=== PATIENT | female | born 1955 | race Caucasian/White ===

== ENCOUNTER 2022-11-07 10:25 | Outpatient (CLI) | payer MEDICARE, BC, SELFPAY ==
[2022-11-07 13:25] LABS: C Reactive Protein* 0.6 mg/dL (0.5-1.0)
[2022-11-07 13:45] LABS: Erythrocyte SedimentationRate* 5 mm/hr (2-20)
== END 2022-11-07 10:26 | disposition home or self-care (01) ==
PROVIDERS: PCP Nurse Practitioner Family; Visit Provider Nurse Practitioner Family
DX: R07.89 Other chest pain (principal)
CPT/HCPCS: 85651; 86140

== ENCOUNTER 2023-06-19 14:11 | Outpatient (CLI) | payer MEDICARE, BC, SELFPAY ==
--- NOTE | 2023-06-19 14:00 | CRLHL7_ITS ---
For Patients: As a result of the Century Cures Act, medical imaging exams and procedure reports are released immediately into your electronic medical record. You may view this report before your referring provider. If you have questions, please contact your health care provider. INDICATION: Leg pain and swelling. TECHNIQUE: Ultrasound venous duplex lower left extremity. Compression venous exam was performed using ordonez-scale, color Doppler, and spectral Doppler analysis. COMPARISON: None. FINDINGS: Deep veins: Occlusive thrombus is present below the knee in a posterior tibial vein. Remainder of the deep veins are patent. Superficial veins: Greater saphenous vein is fully compressible. No popliteal cyst. IMPRESSION: Acute [id number] DVT in the posterior tibial vein. Dictated by Rui Cagle MD @ 06/19/2023 4:12:43 PM (Electronically Signed)
== END 2023-06-19 14:12 | disposition home or self-care (01) ==
PROVIDERS: PCP Nurse Practitioner Family; Visit Provider Nurse Practitioner Family
DX: M79.662 Pain in left lower leg (principal); I82.442 Acute embolism and thrombosis of left tibial vein; M79.89 Other specified soft tissue disorders
CPT/HCPCS: 80048; 85025; 93971

== ENCOUNTER 2023-06-25 14:52 | Emergency (ER) | payer MEDICARE, BC, SELFPAY ==
[2023-06-25 15:02] VITALS: BP 125/78; PULSE 88; RESP 20; TEMP 37; O2SAT 96; BMI 33.7
--- NOTE | 2023-06-25 15:02 | CRLHL7_ITS ---
For Patients: As a result of the Century Cures Act, medical imaging exams and procedure reports are released immediately into your electronic medical record. You may view this report before your referring provider. If you have questions, please contact your health care provider. INDICATION: Right leg pain and fullness TECHNIQUE: Ultrasound venous duplex lower right extremity. Compression venous exam was performed using ordonez-scale, color Doppler, and spectral Doppler imaging. COMPARISON: None. FINDINGS: Sonographic imaging demonstrates the right common femoral, deep femoral, superficial femoral, popliteal, posterior tibial and greater saphenous and the contralateral left common femoral veins to be fully compressible with normal color Doppler blood flow. IMPRESSION: Normal right lower extremity venous ultrasound, no sign of deep venous thrombosis. Dictated by Shahbaz Vicente MD @ 06/25/2023 3:58:46 PM (Electronically Signed)
--- NOTE | 2023-06-25 16:02 | ED.GENADULT ---
HPI - General Adult General Chief complaint: Extremity Pain/Injury, Lower Stated complaint: R leg blood clot/dvt Time Seen by Provider: 06/25/23 14:55 History of Present Illness HPI narrative: This 68-year-old female comes in from [facility] for an ultrasound of her right lower extremity. The patient is currently on Eliquis. She had a repair of her atrial septal defect with an approach to her right groin. She had a stent placed because the procedure caused a bleed in her right femoral vessel. The procedure was then approached from the left femoral vessel. She then developed a blood clot in left lower extremity subsequently. She is currently taking Eliquis. She does not report any chest pain or shortness of breath. Related Data Home Medications Medication Instructions Recorded Confirmed timolol maleate 0.25 % eye drops drp ophthalmic (eye) 11/07/22 06/19/23 acetaminophen 500 mg tablet 1,000 mg PO Q6H PRN 05/06/23 06/19/23 (Tylenol Extra Strength) aspirin 81 mg chewable tablet 81 mg PO QDAY 06/19/23 06/19/23 colchicine 0.6 mg capsule 0.6 mg PO BID 06/19/23 06/19/23 Previous Rx's Medication Instructions Recorded apixaban 5 mg (74 tabs) tablets in See Rx Instructions PO PER PKG DIR 06/19/23 a dose pack (Eliquis DVT-PE Treat 30 days #74 ea 30D Start) apixaban 5 mg tablet (Eliquis) 5 mg PO BID 30 days #60 tabs 06/19/23 Allergies Allergy/AdvReac Type Severity Reaction Status Date / Time oxycodone Allergy Unknown Hallucinati Verified 06/19/23 12:41 ng zoledronic acid Allergy Unknown Unknown Verified 06/19/23 12:41 Review of Systems Status of ROS: Reports: 10 or more systems reviewed and unremarkable except as noted in History and below Narrative: Constitutional: No fevers, no weight gain or loss. Eyes: No discharge. No vision changes. HENT: No congestion, no sore throat, no ear pain. Cardiovascular: No chest pain, no palpitations. Respiratory: No shortness of breath, no wheezes, no cough. Gastrointestinal: No abdominal pain, no vomiting, no diarrhea. Genitourinary: No dysuria, no hematuria. Musculoskeletal: Normal range of motion. Skin: No rashes, no pruritis. Neurological: No dizziness, weakness, sensory change, speech change. Endo/Heme/Allergies: No bleeding. No polydipsia. She has some bruising in her right and left groin from recent procedure. Pysch: no suicidality, no anxiety, no insomnia. All other systems reviewed and are negative. [facility] Medical History (Updated 06/25/23 @ 16:22 by Tip Menendez MD) Neoplasm of right kidney ?D49.511 - Neoplasm of unspecified behavior of right kidney (ICD-10) At risk for decreased bone density ?Z91.89 - Other specified personal risk factors, not elsewhere classified (ICD-10) Malignant neoplasm of breast (female) ?C50.919 - Malignant neoplasm of unspecified site of unspecified female breast (ICD-10) Perforated tympanic membrane ?H72.90 - Unspecified perforation of tympanic membrane, unspecified ear (ICD-10) History of adenomatous polyp of colon ?Z86.010 - Personal history of colonic polyps (ICD-10) Surgical History (Updated 07/23/22 @ 18:23 by Trina An APRN, IT TECHNICAL ARCHITECT) History of colonoscopy ?Z98.890 - Other specified postprocedural states (ICD-10) History of mastectomy ?Z90.10 - Acquired absence of unspecified breast and nipple (ICD-10) History of mastectomy ?Z90.10 - Acquired absence of unspecified breast and nipple (ICD-10) Hx laparoscopic cholecystectomy ?Z90.49 - Acquired absence of other specified parts of digestive tract (ICD-10) History of cataract extraction with lens replacement Family History (Updated 07/23/22 @ 18:21 by Trina An APRN, IT TECHNICAL ARCHITECT) Brother Pancreatic cancer Father High blood pressure Mother Stroke Uncle Colon cancer Paternal Grandmother Breast cancer Sister Diabetes High blood pressure Seizures Crohn's disease Sister Diabetes High blood pressure Seizures Social History Smoking Status: Never smoker Do you use any of these nicotine containing products: None Second hand tobacco smoke exposure: No How often do you have a drink containing alcohol: monthly or less How many standard drinks containing alcohol do you have on a typical day: 1 or 2 How often do you have six or more drinks on one occasion: Never AUDIT-C Alcohol total score: 1 Non-prescribed substance use: denies use service: No Exam Narrative: Exam Narrative: Constitutional: Well-developed, well-nourished, no acute distress. HEENT: Normocephalic, atraumatic. Neck: Normal range of motion. Nontender. Supple. Heart: Regular. No murmurs. Normal rate. Intact distal pulses. Lungs: Clear to auscultation. No chest discomfort. No wheezes, rhonchi, or rales. Abdomen: Normal bowel sounds. Nontender. No rebound tenderness. Genitalia: Deferred. Back: No midline tenderness. Normal range of motion. Extremities: Normal range of motion. No injury. Skin: Intact. No rash. Warm. No erythema or pallor. Neurologic: No altered sensation. No weakness. Alert and oriented. Psychiatric: No suicidality. No anxiety or depression. No insomnia. Nursing notes and vitals signs are reviewed. Const: Vital Signs, click to edit/add: Vital Signs - 24 hr 06/25/23 15:02 Temperature 98.6 F Pulse Rate [Pulse Oximeter] 88 Respiratory Rate 20 Blood Pressure [Le ft Upper Arm] 125/78 Pulse Oximetry 96 Oxygen Delivery Me thod Room Air Course Vital Signs Vital signs: Initial Vital Signs Temperature 98.6 F 06/25/23 15:02 Temperature Source Temporal Artery Scan 06/25/23 15:02 Pulse Rate 88 06/25/23 15:02 Pulse Rhythm Regular 06/25/23 15:02 Respiratory Rate 20 06/25/23 15:02 Blood Pressure 125/78 06/25/23 15:02 Blood Pressure Mean 93 06/25/23 15:02 Blood Pressure Position Supine 06/25/23 15:02 Pulse Oximetry 96 06/25/23 15:02 Oxygen Delivery Method Room Air 06/25/23 15:02 Vital Signs Temperature 98.6 F 06/25/23 15:02 Pulse Rate 88 06/25/23 15:02 Respiratory Rate 20 06/25/23 15:02 Blood Pressure 125/78 06/25/23 15:02 Pulse Oximetry 96 06/25/23 15:02 Oxygen Delivery Method Room Air 06/25/23 15:02 Temperature 98.6 F 06/25/23 15:02 Pulse Rate 88 06/25/23 15:02 Respiratory Rate 20 06/25/23 15:02 Blood Pressure 125/78 06/25/23 15:02 Pulse Oximetry 96 06/25/23 15:02 Oxygen Delivery Method Room Air 06/25/23 15:02 Medical Decision Making MDM Narrative Medical decision making narrative: This patient comes in with concern about a blood clot in her right groin where she had access to her femoral vessel in order to do a atrial septal defect repair. The patient is currently taking Eliquis and does not have any significant unilateral limb pain or swelling. There is evidence of a blood clot from previous study in her left calf hence she is on Eliquis. Today ultrasound of her femoral vessels and upper legs is obtained and shows no evidence of deep venous thrombosis. There is also no evidence of bleeding. This is reassuring to the patient who can continue with her current plans. Imaging Data Left Lower Ext U/S: Radiologist's impression: Normal right lower extremity venous ultrasound, no sign of deep venous thrombosis. Discharge Plan Discharge Clinical Impression: Deep vein thrombosis (DVT) of left lower extremity Patient Disposition: Home, Self-Care Condition: Stable Additional Instructions: Continue current plans. Follow up with MD or return if worsening. Prescriptions: No Action acetaminophen [Tylenol Extra Strength] 500 mg tablet 1,000 mg PO Q6H PRN aspirin 81 mg tablet,chewable 81 mg PO QDAY colchicine 0.6 mg capsule 0.6 mg PO BID Eliquis DVT-PE Treat 30D Start 5 mg (74 tabs) tablets,dose pack See Rx Instructions PO PER PKG DIR 30 Days Qty: 74 0RF Rx Instructions: PO PER PKG DIR; then see other prescription Eliquis 5 mg tablet 5 mg PO BID 30 Days Qty: 60 5RF Rx Instructions: to start after the start pack is completed timolol maleate 0.25 % drops ophthalmic (eye) Follow Up/Referrals: Trina An, INSULATION MACHINE OPERATOR, IT TECHNICAL ARCHITECT [Primary Care Provider] - Stand Alone Forms: MyHealth Info Instructions
[2023-06-25 16:45] VITALS: BP 123/76; PULSE 84; RESP 20; O2SAT 98
== END 2023-06-25 16:45 | disposition home or self-care (01) ==
LOC: ED 16:42
PROVIDERS: Emergency Provider Emergency Medicine Emergency Medical Services; PCP Nurse Practitioner Family
DX: I82.502 Chronic embolism and thrombosis of unspecified deep veins of left lower extremity (principal)
CPT/HCPCS: 93971; 99283; 99284

== ENCOUNTER 2023-11-10 15:40 | Outpatient (CLI) | payer MEDICARE, BC, SELFPAY | END 2023-11-10 15:41 | disposition home or self-care (01) | PROVIDERS: PCP Nurse Practitioner Family; Visit Provider Nurse Practitioner Family | DX: R10.13 Epigastric pain (principal) | CPT/HCPCS: 80053; 82150; 83690; 85025 ==

== ENCOUNTER 2023-11-11 10:15 | Outpatient (CLI) | payer MEDICARE, BC, SELFPAY | END 2023-11-11 10:16 | disposition home or self-care (01) | LOC: NFLDREF 11-13 06:23 | PROVIDERS: PCP Nurse Practitioner Family; Referring Provider Nurse Practitioner Family; Visit Provider Nurse Practitioner Family | DX: R10.13 Epigastric pain (principal) | CPT/HCPCS: 87338 ==

== ENCOUNTER 2024-06-24 10:45 | Outpatient (CLI) | payer MEDICARE, BC, SELFPAY ==
--- OUTSIDE RECORDS SUMMARY | 2024-06-24 10:50 | XMS_ITS | Clinical Summary ---
Author Organization [facility] Address [place], [place] [address] Care Team Providers Care Detailer Name Role Phone Clinic, No Pcp Or Primary Care Provider Unavaila ble Social History Tobacco Use Types Packs/Day Years Used Date Smoking Tobacco: Never Assessed Sex and Gender Information Value Date Recorded Sex Assigned at Not on file Gender Identity Not on file Sexual Orientation Not on file Plan of Treatment Health Maintenance Due Date Last Done Comments Tdap 1966 Depression screening for age 12+ 1967 BMI (ht and wt on same day) for age 18+ 1973 Hepatitis C screening for age 18-79 1973 Tetanus booster 1975 Colonoscopy through age 75 2000 Lipids for age 45-75 2000 Mammogram for age 45-75 2000 Zoster (shingles) series for age 50+ (1 of 2) 2005 DEXA/DXA scan for age 65+ 2020 Pneumococcal series for age 65+ (1 of 1 - PCV) 2020 COVID-19 vaccine series ( season) 2024 12/04/2020, 11/08/2020 Influenza for age 65+ 2024 Care Teams Detailer Relationship Specialty Start Date End Date Clinic, No Pcp Or . PCP - General 09/06/19
--- OUTSIDE RECORDS SUMMARY | 2024-06-24 10:51 | XMS_ITS | Clinical Summary ---
Author Organization [facility] Address [address] [place] [address] Care Team Providers Care Shingle Trimmer Name Role Phone Elsewhere, Pcp Primary Care Provider Unavailabl e Source Comments Patient records contain information from all sites at [facility]. For routine questions regarding patient records, call [phone] during business hours, M-F 8:00 AM - 5:00 PM Central Time. Record requests for emergency care only can be directed to [phone] at any time.[facility] Allergies Active Allergy Reactions Criticality Noted Date Comments Oxycodone Hallucinations High 10/07/2019 Zoledronic Acid Hypotension High 04/18/2017 Nausea, Syncopal episode after 13 mL Medications * This document contains information received from the source organization and may not represent a complete record from that organization. cholecalciferol , vitamin D3, 25 mcg (1,000 Unit) tablet Take 1,000 Units by mouth as needed. SEASONAL - Patient takes from around June to October. Active acetaminophen (TYLENOL) 500 mg tablet Take 2 tablets (1,000 mg total) by mouth every 6 (six) hours as needed for pain. 3 Active timolol (Timoptic) 0.25 % ophthalmic solution Administer 1 drop into both eyes every morning. 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 Atrial Septal Defect Unspecified 05/28/2023 Cancer Breast Personal History 04/04/2023 Obesity Body Mass Index 30-39.9 Adult 04/04/2023 Cholecystectomy Laparoscopic Status Post 023 Glaucoma 04/04/2023 Varicose Vein Lower Extremity Bilateral 04/04/20 23 Mass Kidney 03/31/2023 Absence Of Breast Acquired Bilateral 02/06/2021 Polyp Colon Adenomatous Personal History 021 Overview (09/18/2020): Added automatically from request for surgery [id number] Atypical Glandular Cells Uncertain Significance 07/27/2019 Screening Colon Cancer Average Risk 07/14/2019 Overview (07/14/2019): Added automatically from request for surgery [id number] Radiculopathy Lumbar Resolved Problems Problem Noted Date Diagnosed Date Resolved Date Appendicitis Acute 10/02/2023 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 on 11/16/2017 Malignant Neoplasm Of Breast Female Left 07/29/2005 04/04/2023 Cancer Staging:Pathologic stage from 09/02/2005:Stage 0(Tis, N0, M0) - Signed by Rupali Yan, R.N. on 11/16/2017 Malignant Neoplasm Of Breast Female Right 01/29/1999 04/04/2023 Cancer Staging:Pathologic stage from 01/10/1999:Stage I(T1a, N0, M0) - Signed by Rupali Yan R.N. on 11/16/2017 Pain Chest Wall 04/04/2023 Fracture Radius Closed Initial Right 04/04/2023 Immunizations Name Administration Dates Next Due HZV (ZOSTAVAX) 07/12/2016 PPSV23 03/28/2021(Deferred: Other) RZV (SHINGRIX) 03/28/2021(Deferred: Other) SARS-COV-2 (COVID-19) - PFIZ ER (Discontinued)(12 years or older) 12/04/2020,11/08/2020 Td (Adult), adsorbed 07/11/2006,03/18/2004 Td Preservative Free (TENIVAC, DECAVAC) 07/11/20,03/18/2004 Tdap 06/28/2013 Family History Medical History Relation Name Comments Pancreatic cancer Brother ulises ramirez Hypertension Father samira ramirez Stroke Mother Colon cancer Mother's Brother steve hernandez Breast cancer Paternal Grandmother Crohn's disease Sister 1 vishal hovel Diabetes Sister 1 vishal hovel Hypertension Sister 1 vishal hovel Seizures Sister 1 vishal hovel Glaucoma Sister 2 Ana watching her fo r glaucoma Thyroid disease Sister 2 Ana Macular degeneration Neg Hx Relation Name Status Comments Brother ulises ramirez Father samira ramirez Mother Mother's Brother steve hernandez Paternal Grandmother Sister 1 vishal hovel Sister 2 Ana Social History Tobacco Use Types Packs/Day Years Used Date Smoking Tobacco: Never Passive Smoke Exposure: Never Smokeless Tobacco: Never Tobacco Cessation:Counseling Given: Not Answered Alcohol Use Standard Drinks/Week Comments Yes 2 (1 standard drink = 0.6 oz pur e alcohol) [facility] Utilities Answer Date Recorded In the past [address] [facility] [employer], gas, oil, or water [employer] threatened to shut off services in your home? No 10/02/2023 Humiliation, Afraid, Rape, and Kick questionnair e Answer Date Recorded Within the last year, have y ou been afraid of your partner or ex-partner? No 10/02/2023 Within the last year, have y ou been humiliated or emotionally abused in other ways by your partner or ex-partner? No Within the last year, have y ou been kicked, hit, slapped, or otherwise physically hurt by your partner or ex-partner? No 10/02/2023 Within the last year, have y ou been raped or forced to have any kind of sexual activity by your partner or ex-partner? No 10/02/2023 Social Connection and Isolat ion Panel [NHANES] Answer Date Recorded Frequency of Communication w ith Friends and Family More than three times a week 04/08/2019 Frequency of Social Gatherin gs with Friends and Family More than three times a week 04/08/2019 Attends Restorationism Services More than 4 times per year 04/08/2019 Active Member of Clubs or Organizations Yes 04/08/2019 Attends Club or Organization Meetings 1 to 4 bin es per year 04/08/2019 Marital Status 04/08/2019 AUDIT-C Answer Date Recorded Frequency of Alcohol Consumption Patient decline d 04/08/2019 Average Number of Drinks Patient declined 2018 Frequency of Binge Drinking Never 03/12 Overall Financial Resource Strain (CARDIA) Answe r Date Recorded How hard is it for you to pa y for the very basics like food, housing, medical care, and heating? Patient declined 04/23/2023 [facility] - Occupational Stress Questionnaire Answer Date Recorded Feeling of Stress Not at all 04/08/2019 Exercise Vital Sign Answer Date Recorde d On average, how many days pe r week do you engage in moderate to strenuous exercise (like a brisk walk)? 7 days Minutes of Exercise per Session Not on file 04/23/2023 Hunger Vital Sign Answer Date Recorded Within the past 12 months, y ou worried that your food would run out before you got the money to buy more. Never true 10/02/19 24 Within the past 12 months, t he food you bought just didn't last and you didn't have money to get more. Never true 10/02/2023 PRAPARE - Transportation Answer Date Re corded In the past 12 months, has l ack of transportation kept you from medical appointments or from getting medications? No 09/12 In the past 12 months, has l ack of transportation kept you from meetings, work, or from getting things needed for daily living? No 10/02/2023 Nutrition Answer Date Recorded On average, how many serving s of fruits and vegetables do you eat per day (serving size is equal to 1 cup or approximately the size of a tennis ball)? 5 or more 04/23/2023 Dental Answer Date Recorded Dental: Regular Dentist Yes 04/23/20 23 Employment Answer Date Recorded Employment status Retired 04/23/2023 Housing Stability Answer Date Recorded What is your living situation today? I have a [facility] place to live 10/02/2023 Education Answer Date Recorded What is the highest level of school you have completed or the highest degree you have received? Associate degree: occupational, technical, or vocational program 04/08/2019 Comments No Sex and Gender Information Value Date Recorded Sex Assigned at Female 04/10/2018 8:30 AM CDT Legal Sex Female 3:45 PM POST ADOPTION COORDINATOR Gender Identity Female 04/10/2018 8:30 AM CDT Sexual Orientation Straight 04/10/2018 8: 30 AM CDT Last Filed Vital Signs Vital Sign Reading Time Taken Comments Blood Pressure 122/76 12/17/2023 2:17 PM CDT Pulse 75 12/17/2023 2:17 PM CDT Temperature 36.1 ??C (97 ??F) 12/10/2023 9:16 AM CDT Respiratory Rate 16 12/10/2023 7:40 AM CDT Oxygen Saturation 98% 12/17/2023 2:17 PM CDT Inhaled Oxygen Concentration - - Weight 88.2 kg (194 lb 7.1 oz) 12/17/2023 2:17 P M CDT Height 162.1 cm (5' 3.82) 12/17/2023 2:17 PM CD T Body Mass Index 33.57 12/17/2023 2:17 PM CDT Plan of Treatment Health Maintenance Due Date Last Done Comments CT Colonography 1955 Cologuard 1955 Hepatitis C Screening 1955 Zoster Vaccines (1 of 2) 09/06/2016 07/12/2016 Pneumococcal vaccine (65+ years) (1 of 1 - PCV) 2020 DTaP,Tdap,and Td Vaccines (2 - Td or Tdap) 06/28/2023 06/28/2013, 07/11/2006, 07/11/2006, Additional history exists Depression Screening (Annual PHQ-2) 08/11/2023 COVID-19 Vaccine (3 - season) 2024 12/04/2020, 11/08/2020 Influenza Vaccine (#1) 2024 Fasting Glucose for Diabetes Screening 02/08/2027 02/09/2024, 10/15/2023, 10/03/2023, Additional history exists Colonoscopy 12/09/2028 12/10/2023, 03/0 04/2021, 08/10/2019, Additional history exists Colorectal Cancer Surveillance 12/09/2028 Cervical/Vaginal Cancer Screening Discontinued 07/06/2019, 06/05/2016 (Performed elsewhere), 06/28/2013, Additional history exists Fall Risk Screen (Annual) Completed 12/17/2023 HPV Vaccines Aged Out No longer eligi ble based on patient's age to complete this topic IPV Vaccines Aged Out No longer eligi ble based on patient's age to complete this topic Medical Devices Implanted Type Area Hr Intern Device Identifier Shelf Expiration Date Model / Serial / Lot Clip Device Hemostatic 235 - [id number] Implanted:Qty : 1 on 08/10/2019 by Shon Zazueta M.D. at [facility] Hardware e.g. pins/screw s/rods [employer] [id number] 10/18/2021 [id number] / / [id number] Clip Device Hemostatic 235 - [id number] Implanted:Qty : 1 on 10/17/2020 by Shon Zazueta M.D. at [facility] Hardware e.g. pins/screw s/rods N/A: Transverse Colon [employer] [id number] 06/14/2023 [id number] / / [id number] Clp Lpr Abs Yoni - [id number] Implanted:Qty : 1 on 04/25/2023 by Дмитрий Sheffield M.D. at [facility] Hardware e.g. pins/screw s/rods Right: Abdomen [employer] [id number] 11/08/2025 [id number] / / [id number] Clp Karen Oden Md - [id number] Implanted:Qty : 1 on 04/25/2023 by Дмитрий Sheffield M.D. at [facility] Hardware e.g. pins/screw s/rods Right: Abdomen Teleflex LLC [id number] 02/09/2025 [id number] / / [id number] Clp Dionnaol Akshat Mendoza - [id number] Implanted:Qty : 1 on 04/25/2023 by Дмитрий Sheffield M.D. at [facility] Hardware e.g. pins/screw s/rods Right: Abdomen [employer] LLC [id number] 02/09/2025 [id number] / / [id number] Ocl Cardioform Asd 44 - [id number] - [id number] Implanted:Qty : 1 on 06/11/2023 by Landy White M.D. at [facility] Mesh or Patch N/A: Heart [place] 02/02/2026 [id number] / [id number] / Description:ASD Conversions - Default Historical Implant Device- [id number] Implanted: (Quantity not on file) Ocular Lens Right: Eye Description:Body Location - Eye R. and left eye. Device Status Text - OculrLens. Ocular Lens-12/12/2014 Implanted:11/2014 (Quantity not on file) Ocular Lens Left: Eye Stnt Viabahn 035 [id number] - [id number] - [id number] Implanted:Qty : 1 on 06/11/2023 by Gilmer Lofton M.D. at [facility] Vascular Stent N/A: Leg [place] 03/11/2026 [id number] / [id number] / Description:Common femoral Procedures Procedure Name Priority Date/Time Associated Diagnosis Comments BASIC METABOLIC PANEL, S/P Routine 02/09/2024 7:27 AM CDT Mass Kidney COLONOSCOPY Routine 12/10/2023 9:11 AM CDT Bloating Abdominal Polyp Colon Personal History Pain Epigastric Melena Gastroesophageal Reflux Disease Without Esophagitis THINPREP SCREEN HPV REFLEX Routine 06/28/2013 8:30 AM POST ADOPTION COORDINATOR from Last 3 Months or Most Recently Relevant to Health Maintenance Results * (ABNORMAL) Basic Metabolic Panel (02/09/2024 7:27 AM CDT) Potassium, P 5.5(H) 3.6 - 5.2 mmol/L 02/09/2024 8:01 AM CDT CNFL Sodium, P 142 135 - 145 mmol/L 02/09/2024 8:01 AM CDT CNFL Chloride, P 106 98 - 107 mmol/L 02/09/2024 8:01 AM CDT CNFL Bicarbonate, P 30(H) 22 - 29 mmol/L 02/09/2024 8:00 AM CDT CNFL Anion Gap, P 6(L) 7 - 15 02/09/2024 8:01 AM CDT CNFL BUN (Blood Urea Nitrogen), P 16 6 - 21 mg/dL 02/09/2024 8:00 AM CDT CNFL Creatinine 0.71 0.59 - 1.04 mg/dL 02/09/2024 8:00 AM CDT CNFL Estimated GFR (eGFR) >90 >=60 mL/min/BSA 02/09/2024 8:00 AM CDT CNFL Comment: Estimated GFR calculated using the 2020 CKD_EPI creatinine equation. Calcium, Total, P 9.5 8.8 - 10.2 mg/dL 02/09/2024 8:00 AM CDT CNFL Glucose, P 116 70 - 140 mg/dL 02/09/2024 8:00 AM CDT CNFL Blood (Blood, Venous) 02/09/2024 7:27 AM CDT 02/09/2024 7:28 AM CDT Дмитрий Sheffield M.D. LAB BLOOD ADD-ON Final Result [facility] [address] [place] [id number], [facility] CNFL [facility] in [address] [address] * Pathology ThinPrep Screen HPV Reflex (06/28/2013 8:30 AM POST ADOPTION COORDINATOR) Interpretation [id number] POWERCHART HXThPrep Scrn [facility] See Comment POWERCHART Comment: A. ??ThinPrep Pap Test Screen (Cervical/Endocervical HPV Reflex): Satisfactory for evaluation. Inadequate endocervical/transformation zone component Negative for intraepithelial lesion or malignancy. HPV testing was performed by [employer] Hybrid [employer] II and is negative for HPV types 16,18,31,33,35,39,45,51,52,56,58,59 and 68. Comment: An inadequate endocervical/transformational zone component is not necessarily an indication for immediately repeating the pap. Correlation with the history and clinical exam are required. HXThPrep Scrn [facility] See Comment POWERCHART Comment: Report electronically signed by Aquiles Shankar, SCT(ASCP) 07/06/2013 09:29 Interpreted by: ELKE Saini(ASCP) HX Spec Desc-[facility] See Comment POWERCHART Comment: A. ??ThinPrep Pap Test Screen (Cervical/Endocervical HPV Reflex): Received cloudy specimen in ThinPrep vial. Test Performed by: [address] [address] Sustainability Analyst: Anuj Ahmadi III, M.D. Cervix/Endocervix 06/28/2013 8:30 AM POST ADOPTION COORDINATOR Diann Tavares M.D. LAB PAP PATHDX ORDERABLES Rosalind l Result POWERCHART from Last 3 Months or Most Recently Relevant to Health Maintenance Insurance MEDICARE [facility] [place] [address] Advance Directives For more information, please contact: [phone] * Full Code (Latest Code Status on File) Date Activated Date Inactivated Comments 10/02/2023 10:21 PM 10/04/2023 10:47 AM Question Answer Comments Full Code: Discussed * Full Code Date Activated Date Inactivated Comments 06/11/2023 4:48 PM 06/13/2023 2:44 PM Question Answer Comments Full Code: Discussed * Full Code Date Activated Date Inactivated Comments 10/17/2020 9:43 AM 10/17/2020 12:13 PM Question Answer Comments Full Code: Discussed * Full Code Date Activated Date Inactivated Comments 10/17/2020 7:56 AM 10/17/2020 9:43 AM Question Answer Comments Full Code: Discussed * Full Code Date Activated Date Inactivated Comments 08/10/2019 2:13 PM 08/10/2019 4:18 PM Question Answer Comments Full Code: Discussed Care Teams Shingle Trimmer Relationship Specialty Start Date End Date Elsewhere, Pcp PCP - General 12/02/21
--- OUTSIDE RECORDS SUMMARY | 2024-06-24 10:51 | XMS_ITS ---
Author Organization [facility] Address [address] [place] [address] Care Team Providers Care Corporate Driver Name Role Phone Unavailable Unavailable Unavailable Surgery Details Not on file Complications Check Surgery Details section. Procedure Estimated Blood Loss Check Surgery Details section. Procedure Findings Check Surgery Details section. Procedure Specimens Taken Check Surgery Details section.
--- OUTSIDE RECORDS SUMMARY | 2024-06-24 10:51 | XMS_ITS | Referral Summary ---
Author Organization [facility] Address [address] [place] [address] Care Team Providers Care Metal Bench Patternmaker Name Role Phone Elsewhere, Pcp Primary Care Provider Unavailabl e Source Comments Patient records contain information from all sites at [facility]. For routine questions regarding patient records, call [phone] during business hours, M-F 8:00 AM - 5:00 PM Central Time. 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 Treatment 09/12 Thrombosis Deep Vein [...] (09/18/2020): Added automatically from request for surgery [id number] Atypical Glandular Cells Uncertain Significance 07/27/2019 Screening Colon Cancer Average Risk 07/14/2019 Overview (07/14/2019): Added automatically from request for surgery [id number] Radiculopathy Lumbar Resolved Problems Problem Noted Date [...] Preservative Free (TENIVAC, DECAVAC) 07/11/20,03/18/2004 Tdap 06/28/2013 Social History Tobacco Use Types Packs/Day Years Used Date Smoking Tobacco: Never Passive Smoke Exposure: Never Smokeless Tobacco: Never Tobacco Cessation:Counseling Given: Not Answered Alcohol Use Standard Drinks/Week Comments Yes 2 (1 standard drink = 0.6 oz pur e alcohol) [facility] [employer] Answer Date Recorded In the past 12 months has e [employer], gas, oil, or water [facility] threatened to shut off services in your [...] than three times a week 04/08/2019 Attends Rastafarian Services More than 4 times per year [...] medical care, and heating? Patient declined 04/23/2023 [facility] - Occupational Stress Questionnaire Answer Date [...] Date Recorded Dental: Regular Dentist Yes 04/23/20 Employment Answer Date Recorded Employment status Retired 04/23/2023 Housing Stability Answer Date Recorded What is your living situation today? I have a [facility] place to live 10/02/2023 Education Answer Date Recorded What is the highest level of school you have completed or the highest degree you have received? 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 at [facility] Hardware e.g. pins/screw s/rods [employer] [id number] 10/18/2021 [id number] / / [id number] Clip Device Hemostatic 235 - [id number] Implanted:Qty : 1 on 10/17/2020 by Shon Zazueta M.D. at [facility] Hardware e.g. pins/screw s/rods N/A: Transverse Colon [employer] [id number] 06/14/2023 [id number] / / [id number] Clp Lpr Abs Yoni - [id number] Implanted:Qty : 1 on 04/25/2023 by Дмитрий Sheffield M.D. at [facility] Hardware e.g. pins/screw s/rods Right: Abdomen [employer] Inc [id number] 11/08/2025 XC200 / / [id number] Clp Hmol Plmr Md - [id number] Implanted:Qty : 1 on 04/25/2023 by Дмитрий Sheffield M.D. at [facility] Hardware e.g. pins/screw s/rods Right: Abdomen Teleflex LLC [id number] 02/09/2025 [id number] / / [id number] Clp Karen Oden Md - [id number] Implanted:Qty : 1 on 04/25/2023 by Дмитрий Sheffield M.D. at [facility] Hardware e.g. pins/screw s/rods Right: Abdomen [employer] LLC [id number] 02/09/2025 [id number] / / [id number] Ocl Cardioform Asd 44 - [id number] - [id number] Implanted:Qty : 1 on 06/11/2023 by Landy White M.D. at [facility] Mesh or Patch N/A: Heart [place] 02/02/2026 [id number] / [id number] / Description:ASD Conversions - Default Historical Implant Device- 015 Implanted: (Quantity not on file) Ocular Lens Right: Eye Description:Body Location - Eye R. and left eye. Device Status Text - OculrLens. Ocular Lens-12/12/2014 Implanted:11/2014 (Quantity not on file) Ocular Lens Left: Eye Stnt Viabahn 035 [id number] - [id number] - [id number] Implanted:Qty : 1 on 06/11/2023 by Gilmer Lofton M.D. at [facility] Vascular Stent N/A: Leg [place] 03/11/2026 [id number] / [id number] / Description:Common femoral Procedures Procedure Name Priority Date/Time Associated Diagnosis Comments BASIC METABOLIC PANEL, S/P Routine 02/09/2024 7:27 AM CDT Mass Kidney COLONOSCOPY Routine 12/10/2023 9:11 AM CDT Bloating Abdominal Polyp Colon Personal History Pain Epigastric Melena Gastroesophageal Reflux Disease Without Esophagitis THINPREP SCREEN HPV REFLEX Routine 06/28/2013 8:30 AM SUPERVISOR REINFORCED STEEL PLACING from Last 3 Months or Most Recently [...] 7:27 AM CDT 02/09/2024 7:28 AM CDT us Дмитрий Sheffield M.D. LAB BLOOD ADD-ON Final Result [facility] [address] [place] [id number], [facility] in [address] [address] * Pathology ThinPrep Screen HPV Reflex (06/28/2013 8:30 AM SUPERVISOR REINFORCED STEEL PLACING) Interpretation [id number] POWERCHART HXThPrep Scrn [facility] See Comment POWERCHART Comment: A. ??ThinPrep Pap Test Screen (Cervical/Endocervical HPV Reflex): Satisfactory for evaluation. Inadequate endocervical/transformation zone component Negative for intraepithelial lesion or malignancy. HPV testing was performed by [facility] [employer] and is negative for HPV types 16,18,31,33,35,39,45,51,52,56,58,59 and 68. Comment: An inadequate endocervical/transformational zone component is not necessarily an indication for immediately repeating the pap. Correlation with the history and clinical exam are required. HXThPrep Scrn [facility] See Comment POWERCHART Comment: Report electronically signed by Aquiles Shankar, SCT(ASCP) 07/06/2013 09:29 Interpreted by: ELKE Saini(ASCP) HX Spec [facility] See Comment POWERCHART Comment: A. ??ThinPrep Pap Test Screen (Cervical/Endocervical HPV Reflex): Received cloudy specimen in ThinPrep vial. Test Performed by: [place] [address] Die Designer Apprentice: Anuj Ahmadi III, M.D. Cervix/Endocervix 06/28/2013 8:30 AM SUPERVISOR REINFORCED STEEL PLACING Diann Tavares M.D. LAB PAP PATHDX ORDERABLES Rosalind mahajan Result POWERCHART from Last 3 Months or Most Recently Relevant to Health Maintenance Insurance MEDICARE [facility] Advance Directives For more information, please contact: [phone] * Full Code (Latest Code Status on [...] Answer Comments Full Code: Discussed Care Teams Metal Bench Patternmaker Relationship Specialty Start Date End Date Elsewhere, Pcp PCP - General 12/02/21
--- OUTSIDE RECORDS SUMMARY | 2024-06-24 10:51 | XMS_ITS | Encounter Summary ---
Author Organization [facility] Address [address] [place] [address] Care Team Providers Care Inpatient Nursing Aide Name Role Phone Elsewhere, Pcp Primary Care Provider Unavailabl e Encounter Details Date Type Department Care Team (Late st Contact Info) Description 09/03/2005 Historical Ophthalmology [facility] Tip Spears M.D. [address] [place] [address] Social History Tobacco Use Types Packs/Day Years Used Date Smoking Tobacco: Never Assessed Comments Unknown Sex and Gender Information Value Date Recorded Sex Assigned at Female 04/10/2018 8:30 AM CDT Legal Sex Female 3:45 PM [employer] Gender Identity Female 04/10/2018 8:30 AM CDT Sexual Orientation Straight 04/10/2018 8: 30 AM CDT documented as of this encounter Progress Notes * Tip Spears M.D. - 09/03/2005 12:00 AM CST Eye General CHIEF COMPLAINT ?corneal abrasion, both eyes s/p surgery HISTORY OF PRESENT ILLNESS Patient had mastectomy yesterday. Today she awoke with pain in both eyes. She is contact lens wearer and has not worn then since 07/31 which was prior to the surgery. She describes the pain as intermittant stinging in each eye like getting soap in them. There is a lot of tearing. Denies mattering. Vision unaffected. On visual exam, eyes appear red. Last dilated eye exam 1 yr. ago. IMPRESSION / REPORT / PLAN #1 Eye irritation; both eyes Signs are not specific enough to differentiate between very early conjunctivitis (although no mattering) versus irritation from dry eyes. Becuase conjunctivitis is most often viral there is no indication to begin antibiotic drops. I reassured her that she need not worry about dressing changes. We will begin ointment QHS and artificial tear drops for comfort. She should have a dilated exam in the future. Return with worsening symptoms or other concerns. DIAGNOSIS #1 Eye irritation; both eyes CDM Reports - EYEGEN Id: [id number] Status: Fnl documented in this encounter Plan of Treatment Not on file documented as of this encounter Visit Diagnoses Not on filedocumented in this encounter Additional Health Concerns Infection Onset Date Last Indicated Resolved Time COVID19 Pending 10/14/2020 10/14/2020 10/14/2020 8 :35 PM [employer] COVID19 Pending 11/03/2020 11/03/2020 11/04/2020 1 :46 AM CDT documented as of this encounter Care Teams Inpatient Nursing Aide Relationship Specialty Start Date End Date Elsewhere, Pcp PCP - General 12/02/21 documented as of this encounter
== END 2024-06-24 10:46 | disposition home or self-care (01) ==
PROVIDERS: PCP Nurse Practitioner Family; Visit Provider Nurse Practitioner Family
DX: Z00.00 Encounter for general adult medical examination without abnormal findings (principal); E04.1 Nontoxic single thyroid nodule; Z13.0 Encounter for screening for diseases of the blood and blood-forming organs and certain disorders involving the immune mechanism; Z13.6 Encounter for screening for cardiovascular disorders; Z13.9 Encounter for screening, unspecified
CPT/HCPCS: 80053; 80061; 84443; 85025

== ENCOUNTER 2025-05-30 15:40 | Outpatient (CLI) | payer MEDICARE, BC, SELFPAY ==
--- NOTE | 2025-05-30 16:00 | CRLHL7_ITS ---
For Patients: As a result of the Century Cures Act, medical imaging exams and procedure reports are released immediately into your electronic medical record. You may view this report before your referring provider. If you have questions, please contact your health care provider. INDICATION: Head injury. TECHNIQUE: Noncontrast CT of the head with multiplanar reconstruction utilizing bone and soft tissue algorithms. COMPARISON: None available. FINDINGS: No acute intracranial hemorrhage. Focal hypodensity within right anterior thalamus (series 2, image 31). The ordonez-white matter interface is maintained. The ventricles are normal in size. No abnormal extra-axial fluid collection is identified. The calvarium is intact. The globes are symmetric with evidence of prior cataract surgery. There is lobulated mucosal thickening within the ethmoid and maxillary sinuses. IMPRESSION: 1. No acute intracranial hemorrhage. 2. Focal hypodensity within the right anterior thalamus most consistent with chronic lacunar infarct. 3. Mild mucosal thickening within the ethmoid and maxillary sinuses. Please note that all CT scans at this facility use dose modulation, iterative reconstruction, and/or weight-based dosing when appropriate to reduce radiation dose to as low as reasonably achievable. Dictated by Shayne Negrete MD @ 05/30/2025 4:59:30 PM (Electronically Signed)
== END 2025-05-30 15:41 | disposition home or self-care (01) ==
PROVIDERS: PCP Nurse Practitioner Family; Visit Provider Nurse Practitioner Family
DX: R51.9 Headache, unspecified (principal); S06.0XAA Concussion with loss of consciousness status unknown, initial encounter; J32.0 Chronic maxillary sinusitis; J32.2 Chronic ethmoidal sinusitis
CPT/HCPCS: 70450

== ENCOUNTER 2025-06-28 09:03 | Outpatient (CLI) | payer MEDICARE, BC, SELFPAY | END 2025-06-28 09:04 | disposition home or self-care (01) | PROVIDERS: PCP Nurse Practitioner Family; Visit Provider Nurse Practitioner Family | DX: Z00.00 Encounter for general adult medical examination without abnormal findings (principal); E04.1 Nontoxic single thyroid nodule; Z85.528 Personal history of other malignant neoplasm of kidney; Z13.6 Encounter for screening for cardiovascular disorders | CPT/HCPCS: 80053; 80061; 85025 ==